=== PATIENT | male | born 1945 | race Caucasian/White ===

== ENCOUNTER 2022-06-16 09:34 | Inpatient (IN) | payer MEDICARE, BC ==
[~2022-06-16] VITALS: Ht 170.2 cm; Wt 68.0 kg
[2022-06-16 10:15] LABS: HEMATOCRIT. 36.4 % (42.0-52.0); HEMOGLOBIN. 12.5 g/dL (14.0-18.0); MEAN CORPUSCULAR HEMOGLOBIN 38.3 pg (28.0-32.0); MEAN CORPUSCULAR VOLUME 111.8 fL (80.0-94.0); MEAN PLATELET VOLUME 7.4 fl (7.4-10.4); PLATELET 130 x1000/uL (130-400); RED BLOOD CELL COUNT 3.26 mill/uL (4.7-6.1); RED CELL DISTRIBUTION WIDTH 14.5 % (11.6-14.6)
[2022-06-16 10:23] LABS: CHLORIDE 107 mEq/L (98-107)
[2022-06-16 10:25] LABS: INR 1.1; PROTHROMBIN TIME 11.4 sec (9.6-11.0)
[2022-06-16] MEDS ORDERED: METH-371 PO (11:01)
[2022-06-16] MEDS ORDERED: PROP80TA4 PO (11:03)
[2022-06-16 13:46] LABS: CLARITY URINE CLEAR (CLEAR); COLOR URINE DARK YELLOW (YELLOW); KETONES URINE TRACE (NEGATIVE); LEUKOCYTE ESTERASE URINE NEGATIVE (NEGATIVE); NITRITE URINE NEGATIVE (NEGATIVE); OCCULT BLOOD URINE TRACE (NEGATIVE); PH URINE 5.5 (4.5-8.0); PROTEIN URINE TRACE (NEGATIVE); SPECIFIC GRAVITY URINE 1.027 (1.005-1.030); UROBILINOGEN URINE 0.2 E.U./dL (0.2-1.0)
[2022-06-16] MEDS ORDERED: CARB-LEVO (14:06)
[2022-06-16] MEDS ORDERED: [UNRECOGNIZED DRUG - OTHER] (14:06)
[2022-06-16] MEDS ORDERED: B12 (14:06)
[2022-06-16] MEDS ORDERED: TAMS-11 PO (14:06)
[2022-06-16] MEDS ORDERED: PIMA34CA PO (14:06)
[2022-06-16] MEDS ORDERED: D3 (14:06)
[2022-06-16] MEDS ORDERED: [UNRECOGNIZED DRUG - OTHER] (14:06)
[2022-06-16] MEDS ORDERED: CAPECITABINE (14:06)
[2022-06-16] MEDS ORDERED: ENTA200T2 PO (14:06)
[2022-06-16] MEDS ORDERED: MELATONIN (14:06)
[2022-06-16 14:27] LABS: PLATELET ESTIMATE NORMAL
[2022-06-16] MEDS ORDERED: GUAIFENESIN 200MG/10ML SUGAR FREE UDC PO PRN (17:00)
[2022-06-16] MEDS ORDERED: MAGNESIUM/ALUMINUM HYDROXIDE/SIMETHICONE 30ML UDC PO PRN (17:00)
[2022-06-16] MEDS ORDERED: CLONIDINE 0.1MG TABLET PO PRN (17:00)
[2022-06-16] MEDS ORDERED: DOCUSATE SODIUM 100MG CAPSULE PO PRN (17:00)
[2022-06-16] MEDS ORDERED: IPRATROPIUM/ALBUTEROL 0.5-3(2.5)MG/3ML NEB NEB PRN (17:00)
[2022-06-16] MEDS ORDERED: LEVOFLOXACIN 500MG PREMIX 100 ML IV SCH (17:00)
[2022-06-16] MEDS ORDERED: ONDANSETRON HCL 4MG/2ML INJ IV PRN (17:00)
[2022-06-16] MEDS ORDERED: NITROGLYCERIN 0.4MG TABLET SL SL PRN (17:00)
[2022-06-16] MEDS ORDERED: ACETAMINOPHEN 325MG TABLET PO PRN ×2 (17:00)
[2022-06-16] MEDS ORDERED: TRAMADOL 50MG TABLET PO PRN (17:32)
[2022-06-16 17:38] LABS: T4 FREE 1.2 ng/dL (0.76-1.46)
[2022-06-16] MEDS: ENOXAPARIN 30MG/0.3ML SYR SUBCUT SCH (17:57)
[2022-06-16 18:16] LABS: VITAMIN B12 SERUM > 2000.0 pg/mL (211-911)
[2022-06-16] MEDS: TAMSULOSIN HCL 0.4MG SR CAPSULE PO SCH (19:20)
[2022-06-16] MEDS ORDERED: ZOLPIDEM TARTRATE 5MG TABLET PO PRN (20:00)
[2022-06-16 23:29] LABS: CREATINE KINASE 113 IU/L (39-308); CREATINE KINASE MB FRACTION 2.3 ng/mL (0.5-3.6)
[2022-06-17 06:28] LABS: HEMATOCRIT. 35.7 % (42.0-52.0); HEMOGLOBIN. 12.2 g/dL (14.0-18.0); MEAN CORPUSCULAR HEMOGLOBIN 37.7 pg (28.0-32.0); MEAN CORPUSCULAR VOLUME 110.4 fL (80.0-94.0); MEAN PLATELET VOLUME 7.3 fl (7.4-10.4); PLATELET 144 x1000/uL (130-400); RED BLOOD CELL COUNT 3.24 mill/uL (4.7-6.1); RED CELL DISTRIBUTION WIDTH 14.5 % (11.6-14.6)
[2022-06-17 06:37] LABS: CHLORIDE 110 mEq/L (98-107)
[2022-06-17 06:44] LABS: PHOSPHORUS 2.5 mg/dL (2.5-4.9)
[2022-06-17 06:57] LABS: CREATINE KINASE MB FRACTION 1.8 ng/mL (0.5-3.6)
[2022-06-17] MEDS: PANTOPRAZOLE SODIUM 40 MG/VIAL IV SCH (09:30)
[2022-06-17 12:15] VITALS: BP 141/87
[2022-06-17 14:42] VITALS: BP 141/87
[2022-06-17] MEDS ORDERED: PROP60TA18 PO (15:12)
[2022-06-17 16:00] VITALS: BP 143/73
[2022-06-17 16:45] LABS: PLATELET ESTIMATE NORMAL
[2022-06-17] MEDS: TAMSULOSIN HCL 0.4MG SR CAPSULE PO SCH (17:48)
[2022-06-17] MEDS: DUTASTERIDE 0.5MG CAPSULE PO SCH (17:48)
[2022-06-17] MEDS: ENOXAPARIN 30MG/0.3ML SYR SUBCUT SCH (17:49)
[2022-06-17 18:00] LABS: *AMPHETAMINES SCREEN URINE NEGATIVE (NEGATIVE); *BARBITURATES SCREEN URINE NEGATIVE (NEGATIVE); *BENZODIAZEPINES SCREEN URINE NEGATIVE (NEGATIVE); *COCAINE SCREEN URINE NEGATIVE (NEGATIVE); CANNABINOID URINE SCREEN NEGATIVE (NEGATIVE); METHADONE URINE SCREEN NEGATIVE (NEGATIVE); OPIATES URINE SCREEN NEGATIVE (NEGATIVE); PHENCYCLIDINE URINE SCREEN NEGATIVE (NEGATIVE)
[2022-06-17] MEDS ORDERED: NALOXONE HCL 0.4MG/ML VIAL IV PRN (18:15)
[2022-06-17 20:00] VITALS: BP 123/90
[2022-06-17] MEDS ORDERED: CARB-299 PO (20:18)
[2022-06-18] VITALS: BP 140/77
[2022-06-18 04:00] VITALS: BP 132/77
[2022-06-18] MEDS ORDERED: CARBIDOPA/LEVODOPA 25/100MG TABLET PO ONE (07:45)
[2022-06-18 08:00] VITALS: BP 150/77
[2022-06-18] MEDS: PANTOPRAZOLE SODIUM 40 MG/VIAL IV SCH (08:45)
[2022-06-18] MEDS: TAMSULOSIN HCL 0.4MG SR CAPSULE PO SCH (08:46)
[2022-06-18] MEDS: DUTASTERIDE 0.5MG CAPSULE PO SCH (08:46)
[2022-06-18] MEDS ORDERED: LEVOFLOXACIN 500MG PREMIX 100 ML IV SCH (11:00)
[2022-06-18 12:00] VITALS: BP 145/71
[2022-06-18] MEDS: CARBIDOPA/LEVODOPA 25/100MG TABLET PO SCH ×3 (12:20→20:10)
[2022-06-18 16:00] VITALS: BP 135/72
[2022-06-18] MEDS: ENOXAPARIN 30MG/0.3ML SYR SUBCUT SCH (17:25)
[2022-06-18 20:00] VITALS: BP 138/70
[2022-06-19] VITALS: BP 134/72
[2022-06-19 04:00] VITALS: BP 150/70
[2022-06-19 08:00] VITALS: BP 156/85
[2022-06-19] MEDS: DUTASTERIDE 0.5MG CAPSULE PO SCH (08:31)
[2022-06-19] MEDS: CARBIDOPA/LEVODOPA 25/100MG TABLET PO SCH ×4 (08:31→21:00)
[2022-06-19] MEDS: PANTOPRAZOLE SODIUM 40 MG/VIAL IV SCH (08:31)
[2022-06-19] MEDS: TAMSULOSIN HCL 0.4MG SR CAPSULE PO SCH (08:35)
[2022-06-19 16:00] VITALS: BP 153/87
[2022-06-19 16:17] LABS: BASOPHILS % 0.4 % (0.0-2.0); EOSINOPHILS % 1.1 % (0.0-5.0); HEMATOCRIT. 35.4 % (42.0-52.0); HEMOGLOBIN. 12.2 g/dL (14.0-18.0); LYMPHOCYTES % 9.2 % (20.0-50.0); MEAN CORPUSCULAR HEMOGLOBIN 38.4 pg (28.0-32.0); MEAN PLATELET VOLUME 7.7 fl (7.4-10.4); MONOCYTES % 8.9 % (2.0-8.0); NEUTROPHILS % 80.4 % (40.0-76.0); PLATELET 181 x1000/uL (130-400); RED BLOOD CELL COUNT 3.19 mill/uL (4.7-6.1); RED CELL DISTRIBUTION WIDTH 14.3 % (11.6-14.6)
[2022-06-19 16:28] LABS: CHLORIDE 107 mEq/L (98-107)
[2022-06-19] MEDS: ENOXAPARIN 30MG/0.3ML SYR SUBCUT SCH (17:00)
[2022-06-19] MEDS: LEVOFLOXACIN 500MG PREMIX 100 ML IV SCH (19:00)
[2022-06-19 20:00] VITALS: BP 138/69
[2022-06-20] VITALS: BP 105/61
[2022-06-20 04:00] VITALS: BP 147/83
[2022-06-20 08:00] VITALS: BP 142/76
[2022-06-20] MEDS: CARBIDOPA/LEVODOPA 25/100MG TABLET PO SCH ×4 (10:38→21:07)
[2022-06-20] MEDS: TAMSULOSIN HCL 0.4MG SR CAPSULE PO SCH (10:38)
[2022-06-20] MEDS: DUTASTERIDE 0.5MG CAPSULE PO SCH (10:38)
[2022-06-20 12:00] VITALS: BP 143/66
[2022-06-20] MEDS: LEVOFLOXACIN 500MG PREMIX 100 ML IV SCH (12:29)
[2022-06-20] MEDS: FAMOTIDINE 20MG/2ML VIAL IV SCH ×2 (12:30→21:07)
[2022-06-20] MEDS ORDERED: LOPERAMIDE HCL 2MG CAPSULE PO SCH ×2 (13:30→15:30)
[2022-06-20 16:00] VITALS: BP 145/65
[2022-06-20] MEDS: ENOXAPARIN 30MG/0.3ML SYR SUBCUT SCH (17:47)
[2022-06-20 20:00] VITALS: BP 148/76
[2022-06-21] VITALS: BP 132/67
[2022-06-21 04:00] VITALS: BP 140/78
[2022-06-21 06:54] LABS: BASOPHILS % 0.3 % (0.0-2.0); EOSINOPHILS % 0.9 % (0.0-5.0); HEMATOCRIT. 34.2 % (42.0-52.0); HEMOGLOBIN. 12.1 g/dL (14.0-18.0); LYMPHOCYTES % 10.3 % (20.0-50.0); MEAN CORPUSCULAR HEMOGLOBIN 38.2 pg (28.0-32.0); MEAN CORPUSCULAR VOLUME 108.2 fL (80.0-94.0); MEAN PLATELET VOLUME 7.3 fl (7.4-10.4); MONOCYTES % 10.2 % (2.0-8.0); NEUTROPHILS % 78.3 % (40.0-76.0); PLATELET 194 x1000/uL (130-400); RED BLOOD CELL COUNT 3.16 mill/uL (4.7-6.1); RED CELL DISTRIBUTION WIDTH 14.2 % (11.6-14.6)
[2022-06-21 08:00] VITALS: BP 141/77
[2022-06-21] MEDS: FAMOTIDINE 20MG/2ML VIAL IV SCH ×2 (08:37→22:28)
[2022-06-21] MEDS: TAMSULOSIN HCL 0.4MG SR CAPSULE PO SCH (08:37)
[2022-06-21] MEDS: CARBIDOPA/LEVODOPA 25/100MG TABLET PO SCH ×4 (08:37→22:29)
[2022-06-21 08:38] LABS: CHLORIDE 108 mEq/L (98-107)
[2022-06-21] MEDS: DUTASTERIDE 0.5MG CAPSULE PO SCH (08:38)
[2022-06-21 12:00] VITALS: BP 152/76
[2022-06-21 16:00] VITALS: BP 149/76
[2022-06-21] MEDS: ENOXAPARIN 30MG/0.3ML SYR SUBCUT SCH (17:39)
[2022-06-21 20:00] VITALS: BP 133/89
[2022-06-21] MEDS ORDERED: NUPLAZID 34 MG PO SCH (20:00)
[2022-06-22] VITALS: BP 133/71
[2022-06-22 08:00] VITALS: BP 159/80
[2022-06-22] MEDS: FAMOTIDINE 20MG/2ML VIAL IV SCH (08:59)
[2022-06-22] MEDS: CARBIDOPA/LEVODOPA 25/100MG TABLET PO SCH ×3 (08:59→17:59)
[2022-06-22] MEDS: DUTASTERIDE 0.5MG CAPSULE PO SCH (08:59)
[2022-06-22] MEDS: TAMSULOSIN HCL 0.4MG SR CAPSULE PO SCH (08:59)
[2022-06-22 12:00] VITALS: BP 148/77
[2022-06-22 16:00] VITALS: BP 143/72
[2022-06-22] MEDS: ENOXAPARIN 30MG/0.3ML SYR SUBCUT SCH (17:59)
== END 2022-06-22 21:50 | DRG 91 ==
LOC: ER 09:34 → MICUSO 13:40 → EDBEDREQ 13:50 → SUPCPDRO 16:55 → 8WST 06-17 11:55
PROVIDERS: ADMIT Psychiatry & Neurology Neurology; ATTEND Internal Medicine
DX: G92.8 Other toxic encephalopathy (principal); G82.50 Quadriplegia, unspecified; N17.0 Acute kidney failure with tubular necrosis; E44.1 Mild protein-calorie malnutrition; N39.0 Urinary tract infection, site not specified; N13.30 Unspecified hydronephrosis; N40.1 Benign prostatic hyperplasia with lower urinary tract symptoms; E88.09 Other disorders of plasma-protein metabolism, not elsewhere classified; G20 Parkinson's disease; F02.80 Dementia in other diseases classified elsewhere, unspecified severity, without behavioral disturbance, psychotic disturbance, mood disturbance, and anxiety; R13.10 Dysphagia, unspecified; R26.9 Unspecified abnormalities of gait and mobility; R33.8 Other retention of urine; H54.7 Unspecified visual loss; D63.8 Anemia in other chronic diseases classified elsewhere; N32.89 Other specified disorders of bladder; Z68.23 Body mass index [BMI] 23.0-23.9, adult; Z88.2 Allergy status to sulfonamides; Z90.49 Acquired absence of other specified parts of digestive tract; Z85.038 Personal history of other malignant neoplasm of large intestine; Z82.49 Family history of ischemic heart disease and other diseases of the circulatory system; Z87.891 Personal history of nicotine dependence; Z79.899 Other long term (current) drug therapy
CPT/HCPCS: 36415; 74176; 80048; 80053; 80061; 80305; 81003; 82550; 82553; 82607; 82746; 83036; 83540; 83550; 83735; 84100; 84439; 84443; 84484; 85025; 87493; 92610; 93970; 97110; 97162; 97166; 97530; 97535; 99285; A6261; C9113; J1650; J1956; J3490; A4315

== ENCOUNTER 2022-06-22 21:55 | Inpatient (IN) | payer MEDICARE, BC ==
[~2022-06-22] VITALS: Ht 170.2 cm; Wt 68.0 kg
[2022-06-22 21:55] VITALS: BP 155/90
[~2022-06-22 21:55] MED LIST: B12; CAPECITABINE; CARB-299 PO; CARB-LEVO; D3; ENTA200T2 PO; MELATONIN; METH-371 PO; PIMA34CA PO; PROP60TA18 PO; TAMS-11 PO; [UNRECOGNIZED DRUG - OTHER]; [UNRECOGNIZED DRUG - OTHER]
[2022-06-22 22:00] VITALS: BP 155/90
[2022-06-22] MEDS ORDERED: CLONIDINE 0.1MG TABLET PO PRN (23:00)
[2022-06-22] MEDS ORDERED: ONDANSETRON HCL 4MG/2ML INJ IV PRN (23:00)
[2022-06-22] MEDS ORDERED: ACETAMINOPHEN 325MG TABLET PO PRN (23:00)
[2022-06-22] MEDS ORDERED: NITROGLYCERIN 0.4MG TABLET SL SL PRN (23:00)
[2022-06-22] MEDS ORDERED: MAGNESIUM/ALUMINUM HYDROXIDE/SIMETHICONE 30ML UDC PO PRN (23:00)
[2022-06-22] MEDS ORDERED: GUAIFENESIN 200MG/10ML SUGAR FREE UDC PO PRN (23:00)
[2022-06-22] MEDS ORDERED: IPRATROPIUM/ALBUTEROL 0.5-3(2.5)MG/3ML NEB HHN PRN (23:00)
[2022-06-23] MEDS ORDERED: DOCUSATE SODIUM 100MG CAPSULE PO PRN (02:15)
[2022-06-23 06:40] LABS: BASOPHILS % 0.3 % (0.0-2.0); EOSINOPHILS % 0.5 % (0.0-5.0); HEMATOCRIT. 33.1 % (42.0-52.0); HEMOGLOBIN. 11.7 g/dL (14.0-18.0); MEAN CORPUSCULAR HEMOGLOBIN 38.5 pg (28.0-32.0); MEAN CORPUSCULAR VOLUME 108.8 fL (80.0-94.0); MEAN PLATELET VOLUME 7.1 fl (7.4-10.4); MONOCYTES % 6.6 % (2.0-8.0); NEUTROPHILS % 82.6 % (40.0-76.0); PLATELET 218 x1000/uL (130-400); RED BLOOD CELL COUNT 3.04 mill/uL (4.7-6.1)
[2022-06-23 07:30] LABS: CHLORIDE 107 mEq/L (98-107)
[2022-06-23 08:00] VITALS: BP 156/81
[2022-06-23] MEDS: NUPLAZID 34 MG PO SCH (09:00)
[2022-06-23] MEDS: TAMSULOSIN HCL 0.4MG SR CAPSULE PO SCH (09:54)
[2022-06-23] MEDS: FAMOTIDINE 20MG TABLET PO SCH ×2 (09:54→20:16)
[2022-06-23] MEDS: DUTASTERIDE 0.5MG CAPSULE PO SCH (09:54)
[2022-06-23] MEDS: CARBIDOPA/LEVODOPA 25/100MG TABLET PO SCH ×4 (09:54→20:17)
[2022-06-23 13:56] VITALS: BP 156/86
[2022-06-23] MEDS ORDERED: ENOXAPARIN 30MG/0.3ML SYR SUBCUT SCH (17:00)
[2022-06-23 20:00] VITALS: BP 111/57
[2022-06-24 06:53] LABS: BASOPHILS % 0.3 % (0.0-2.0); EOSINOPHILS % 0.5 % (0.0-5.0); HEMATOCRIT. 33.2 % (42.0-52.0); HEMOGLOBIN. 11.8 g/dL (14.0-18.0); LYMPHOCYTES % 10.4 % (20.0-50.0); MEAN CORPUSCULAR HEMOGLOBIN 38.2 pg (28.0-32.0); MEAN PLATELET VOLUME 7.1 fl (7.4-10.4); MONOCYTES % 5.3 % (2.0-8.0); NEUTROPHILS % 83.5 % (40.0-76.0); PLATELET 245 x1000/uL (130-400); RED CELL DISTRIBUTION WIDTH 13.8 % (11.6-14.6)
[2022-06-24 07:19] LABS: CHLORIDE 103 mEq/L (98-107)
[2022-06-24 07:30] LABS: FERRITIN 328 ng/mL (22-322)
[2022-06-24 07:43] LABS: VITAMIN B12 SERUM >2000 pg/mL pg/mL (211-911)
[2022-06-24 07:48] LABS: TOTAL IRON BINDING CAPACITY 264 ug/dL (250-450)
[2022-06-24 08:00] VITALS: BP 122/63
[2022-06-24] MEDS: NUPLAZID 34 MG PO SCH (09:00)
[2022-06-24] MEDS: DUTASTERIDE 0.5MG CAPSULE PO SCH (09:07)
[2022-06-24] MEDS: TAMSULOSIN HCL 0.4MG SR CAPSULE PO SCH (09:07)
[2022-06-24] MEDS: FAMOTIDINE 20MG TABLET PO SCH ×2 (09:08→20:15)
[2022-06-24] MEDS: CARBIDOPA/LEVODOPA 25/100MG TABLET PO SCH ×4 (09:08→20:15)
[2022-06-24 20:29] VITALS: BP 138/74
[2022-06-25 06:16] LABS: CHLORIDE 105 mEq/L (98-107)
[2022-06-25 06:19] LABS: INR 1.1; PROTHROMBIN TIME 11.4 sec (9.6-11.0)
[2022-06-25 06:32] LABS: BASOPHILS % 0.4 % (0.0-2.0); EOSINOPHILS % 0.6 % (0.0-5.0); HEMATOCRIT. 32.4 % (42.0-52.0); HEMOGLOBIN. 11.6 g/dL (14.0-18.0); LYMPHOCYTES % 7.7 % (20.0-50.0); MEAN CORPUSCULAR HEMOGLOBIN 37.9 pg (28.0-32.0); MEAN PLATELET VOLUME 6.8 fl (7.4-10.4); MONOCYTES % 5.7 % (2.0-8.0); NEUTROPHILS % 85.6 % (40.0-76.0); PLATELET 239 x1000/uL (130-400); RED BLOOD CELL COUNT 3.05 mill/uL (4.7-6.1); RED CELL DISTRIBUTION WIDTH 13.8 % (11.6-14.6)
[2022-06-25 08:00] VITALS: BP 146/74
[2022-06-25] MEDS: FAMOTIDINE 20MG TABLET PO SCH ×2 (08:53→20:15)
[2022-06-25] MEDS: CARBIDOPA/LEVODOPA 25/100MG TABLET PO SCH ×4 (08:53→20:15)
[2022-06-25] MEDS: DUTASTERIDE 0.5MG CAPSULE PO SCH (08:53)
[2022-06-25] MEDS: TAMSULOSIN HCL 0.4MG SR CAPSULE PO SCH (08:54)
[2022-06-25] MEDS: ACETAMINOPHEN 325MG TABLET PO PRN (08:55)
[2022-06-25] MEDS: NUPLAZID 34 MG PO SCH (08:55)
[2022-06-25] MEDS ORDERED: POTASSIUM CHLORIDE 20MEQ TABLET SR PO SCH (11:00)
[2022-06-25 16:15] LABS: T4 FREE 1.36 ng/dL (0.76-1.46)
[2022-06-25] MEDS: ENTACAPONE 200MG TABLET PO SCH ×2 (17:29→20:15)
[2022-06-25 20:16] VITALS: BP 112/64
[2022-06-25] MEDS: LACTULOSE 20G/30ML UDC PO SCH (21:49)
[2022-06-26] MEDS: LACTULOSE 20G/30ML UDC PO SCH ×2 (05:07→13:30)
[2022-06-26 08:00] VITALS: BP 124/70
[2022-06-26] MEDS: CARBIDOPA/LEVODOPA 25/100MG TABLET PO SCH ×4 (08:52→21:09)
[2022-06-26] MEDS: FAMOTIDINE 20MG TABLET PO SCH ×2 (08:52→21:09)
[2022-06-26] MEDS: TAMSULOSIN HCL 0.4MG SR CAPSULE PO SCH (08:52)
[2022-06-26] MEDS: DUTASTERIDE 0.5MG CAPSULE PO SCH (08:52)
[2022-06-26] MEDS: ENTACAPONE 200MG TABLET PO SCH ×4 (08:52→21:09)
[2022-06-26] MEDS: NUPLAZID 34 MG PO SCH (08:53)
[2022-06-26 13:47] LABS: CHLORIDE 105 mEq/L (98-107)
[2022-06-26 16:23] LABS: BASOPHILS % 0.5 % (0.0-2.0); EOSINOPHILS % 0.3 % (0.0-5.0); HEMATOCRIT. 31.9 % (42.0-52.0); HEMOGLOBIN. 11.2 g/dL (14.0-18.0); LYMPHOCYTES % 8.9 % (20.0-50.0); MEAN CORPUSCULAR HEMOGLOBIN 37.7 pg (28.0-32.0); MEAN CORPUSCULAR VOLUME 107.1 fL (80.0-94.0); MONOCYTES % 7.7 % (2.0-8.0); NEUTROPHILS % 82.6 % (40.0-76.0); PLATELET 242 x1000/uL (130-400); RED BLOOD CELL COUNT 2.98 mill/uL (4.7-6.1); RED CELL DISTRIBUTION WIDTH 13.9 % (11.6-14.6)
[2022-06-26 20:00] VITALS: BP 102/77
[2022-06-27 07:10] LABS: BASOPHILS % 0.4 % (0.0-2.0); EOSINOPHILS % 0.6 % (0.0-5.0); HEMOGLOBIN. 11.4 g/dL (14.0-18.0); LYMPHOCYTES % 10.7 % (20.0-50.0); MEAN CORPUSCULAR HEMOGLOBIN 37.7 pg (28.0-32.0); MEAN CORPUSCULAR VOLUME 105.7 fL (80.0-94.0); MEAN PLATELET VOLUME 6.5 fl (7.4-10.4); MONOCYTES % 7.1 % (2.0-8.0); NEUTROPHILS % 81.2 % (40.0-76.0); PLATELET 230 x1000/uL (130-400); RED BLOOD CELL COUNT 3.03 mill/uL (4.7-6.1); RED CELL DISTRIBUTION WIDTH 13.6 % (11.6-14.6)
[2022-06-27 07:21] LABS: CHLORIDE 104 mEq/L (98-107)
[2022-06-27 08:00] VITALS: BP 144/81
[2022-06-27] MEDS: DUTASTERIDE 0.5MG CAPSULE PO SCH (08:03)
[2022-06-27] MEDS: NUPLAZID 34 MG PO SCH (08:03)
[2022-06-27] MEDS: ENTACAPONE 200MG TABLET PO SCH ×4 (08:03→21:14)
[2022-06-27] MEDS: TAMSULOSIN HCL 0.4MG SR CAPSULE PO SCH (08:03)
[2022-06-27] MEDS: FAMOTIDINE 20MG TABLET PO SCH ×2 (08:04→21:13)
[2022-06-27] MEDS: CARBIDOPA/LEVODOPA 25/100MG TABLET PO SCH ×4 (08:04→21:14)
[2022-06-27 20:00] VITALS: BP 146/80
[2022-06-28 07:00] LABS: BASOPHILS % 0.5 % (0.0-2.0); EOSINOPHILS % 0.5 % (0.0-5.0); HEMATOCRIT. 32.2 % (42.0-52.0); HEMOGLOBIN. 11.4 g/dL (14.0-18.0); LYMPHOCYTES % 11.5 % (20.0-50.0); MEAN CORPUSCULAR HEMOGLOBIN 37.3 pg (28.0-32.0); MEAN CORPUSCULAR VOLUME 105.6 fL (80.0-94.0); MEAN PLATELET VOLUME 6.9 fl (7.4-10.4); MONOCYTES % 8.2 % (2.0-8.0); NEUTROPHILS % 79.3 % (40.0-76.0); PLATELET 245 x1000/uL (130-400); RED BLOOD CELL COUNT 3.05 mill/uL (4.7-6.1); RED CELL DISTRIBUTION WIDTH 13.9 % (11.6-14.6)
[2022-06-28 07:01] LABS: CHLORIDE 106 mEq/L (98-107)
[2022-06-28 08:00] VITALS: BP 128/66
[2022-06-28] MEDS: CARBIDOPA/LEVODOPA 25/100MG TABLET PO SCH ×4 (08:45→20:47)
[2022-06-28] MEDS: DUTASTERIDE 0.5MG CAPSULE PO SCH (08:45)
[2022-06-28] MEDS: FAMOTIDINE 20MG TABLET PO SCH ×2 (08:45→20:48)
[2022-06-28] MEDS: TAMSULOSIN HCL 0.4MG SR CAPSULE PO SCH (08:46)
[2022-06-28] MEDS: ENTACAPONE 200MG TABLET PO SCH ×4 (08:46→20:47)
[2022-06-28] MEDS: NUPLAZID 34 MG PO SCH (08:47)
[2022-06-28] MEDS: ACETAMINOPHEN 325MG TABLET PO PRN (18:01)
[2022-06-28 20:04] VITALS: BP 124/56
[2022-06-29 06:02] LABS: CHLORIDE 106 mEq/L (98-107)
[2022-06-29 06:44] LABS: BASOPHILS % 0.4 % (0.0-2.0); EOSINOPHILS % 0.8 % (0.0-5.0); HEMATOCRIT. 32.4 % (42.0-52.0); HEMOGLOBIN. 11.6 g/dL (14.0-18.0); LYMPHOCYTES % 11.8 % (20.0-50.0); MEAN CORPUSCULAR HEMOGLOBIN 37.4 pg (28.0-32.0); MEAN CORPUSCULAR VOLUME 104.8 fL (80.0-94.0); MEAN PLATELET VOLUME 6.8 fl (7.4-10.4); MONOCYTES % 7.9 % (2.0-8.0); NEUTROPHILS % 79.1 % (40.0-76.0); PLATELET 260 x1000/uL (130-400); RED BLOOD CELL COUNT 3.09 mill/uL (4.7-6.1); RED CELL DISTRIBUTION WIDTH 13.8 % (11.6-14.6)
[2022-06-29 08:00] VITALS: BP 130/88
[2022-06-29] MEDS: ACETAMINOPHEN 325MG TABLET PO PRN (08:18)
[2022-06-29] MEDS: CARBIDOPA/LEVODOPA 25/100MG TABLET PO SCH ×4 (08:18→20:46)
[2022-06-29] MEDS: DUTASTERIDE 0.5MG CAPSULE PO SCH (08:18)
[2022-06-29] MEDS: ENTACAPONE 200MG TABLET PO SCH ×4 (08:18→20:46)
[2022-06-29] MEDS: FAMOTIDINE 20MG TABLET PO SCH ×2 (08:18→20:46)
[2022-06-29] MEDS: NUPLAZID 34 MG PO SCH (08:19)
[2022-06-29] MEDS: TAMSULOSIN HCL 0.4MG SR CAPSULE PO SCH (08:19)
[2022-06-29 20:13] VITALS: BP 123/54
[2022-06-30 06:05] LABS: CHLORIDE 103 mEq/L (98-107)
[2022-06-30 06:12] LABS: BASOPHILS % 0.4 % (0.0-2.0); HEMATOCRIT. 32.6 % (42.0-52.0); HEMOGLOBIN. 11.6 g/dL (14.0-18.0); MEAN CORPUSCULAR HEMOGLOBIN 37.3 pg (28.0-32.0); MEAN CORPUSCULAR VOLUME 105.2 fL (80.0-94.0); MEAN PLATELET VOLUME 6.8 fl (7.4-10.4); MONOCYTES % 7.7 % (2.0-8.0); NEUTROPHILS % 74.9 % (40.0-76.0); PLATELET 257 x1000/uL (130-400); RED CELL DISTRIBUTION WIDTH 13.6 % (11.6-14.6)
[2022-06-30 08:00] VITALS: BP 151/71
[2022-06-30] MEDS: NUPLAZID 34 MG PO SCH (09:00)
[2022-06-30] MEDS: FAMOTIDINE 20MG TABLET PO SCH ×2 (09:34→20:43)
[2022-06-30] MEDS: ENTACAPONE 200MG TABLET PO SCH ×4 (09:35→20:43)
[2022-06-30] MEDS: CARBIDOPA/LEVODOPA 25/100MG TABLET PO SCH ×4 (09:35→20:43)
[2022-06-30] MEDS: TAMSULOSIN HCL 0.4MG SR CAPSULE PO SCH (09:35)
[2022-06-30] MEDS: DUTASTERIDE 0.5MG CAPSULE PO SCH (09:35)
[2022-06-30] MEDS: ACETAMINOPHEN 325MG TABLET PO PRN (13:28)
[2022-06-30 18:00] VITALS: BP 151/71
[2022-06-30 20:00] VITALS: BP 93/53
[2022-07-01 06:48] LABS: CHLORIDE 105 mEq/L (98-107)
[2022-07-01 07:07] LABS: BASOPHILS % 0.6 % (0.0-2.0); EOSINOPHILS % 0.5 % (0.0-5.0); HEMATOCRIT. 34.9 % (42.0-52.0); LYMPHOCYTES % 16.1 % (20.0-50.0); MEAN CORPUSCULAR HEMOGLOBIN 36.2 pg (28.0-32.0); MEAN CORPUSCULAR VOLUME 105.3 fL (80.0-94.0); MEAN PLATELET VOLUME 7.1 fl (7.4-10.4); MONOCYTES % 5.6 % (2.0-8.0); NEUTROPHILS % 77.2 % (40.0-76.0); PLATELET 264 x1000/uL (130-400); RED BLOOD CELL COUNT 3.32 mill/uL (4.7-6.1)
[2022-07-01 08:00] VITALS: BP 146/72
[2022-07-01] MEDS: CARBIDOPA/LEVODOPA 25/100MG TABLET PO SCH ×4 (08:45→20:55)
[2022-07-01] MEDS: DUTASTERIDE 0.5MG CAPSULE PO SCH (08:45)
[2022-07-01] MEDS: ENTACAPONE 200MG TABLET PO SCH ×4 (08:45→20:55)
[2022-07-01] MEDS: FAMOTIDINE 20MG TABLET PO SCH ×2 (08:46→20:55)
[2022-07-01] MEDS: TAMSULOSIN HCL 0.4MG SR CAPSULE PO SCH (08:46)
[2022-07-01] MEDS: ACETAMINOPHEN 325MG TABLET PO PRN ×2 (08:47→18:15)
[2022-07-01] MEDS: NUPLAZID 34 MG PO SCH (08:50)
[2022-07-01 14:09] LABS: 25-HYDROXY VITAMIN D3 35 ng/mL (.)
[2022-07-01 20:00] VITALS: BP 155/73
[2022-07-02 06:48] LABS: BASOPHILS % 0.7 % (0.0-2.0); EOSINOPHILS % 1.6 % (0.0-5.0); HEMOGLOBIN. 11.5 g/dL (14.0-18.0); LYMPHOCYTES % 28.2 % (20.0-50.0); MEAN CORPUSCULAR HEMOGLOBIN 36.4 pg (28.0-32.0); MEAN CORPUSCULAR VOLUME 104.5 fL (80.0-94.0); MEAN PLATELET VOLUME 6.9 fl (7.4-10.4); MONOCYTES % 7.2 % (2.0-8.0); NEUTROPHILS % 62.3 % (40.0-76.0); PLATELET 262 x1000/uL (130-400); RED BLOOD CELL COUNT 3.16 mill/uL (4.7-6.1); RED CELL DISTRIBUTION WIDTH 13.9 % (11.6-14.6)
[2022-07-02 06:57] LABS: CHLORIDE 108 mEq/L (98-107)
[2022-07-02 08:00] VITALS: BP 132/78
[2022-07-02] MEDS: FAMOTIDINE 20MG TABLET PO SCH ×2 (08:00→21:05)
[2022-07-02] MEDS: DUTASTERIDE 0.5MG CAPSULE PO SCH (08:00)
[2022-07-02] MEDS: TAMSULOSIN HCL 0.4MG SR CAPSULE PO SCH (08:00)
[2022-07-02] MEDS: ENTACAPONE 200MG TABLET PO SCH ×4 (08:00→21:05)
[2022-07-02] MEDS: CARBIDOPA/LEVODOPA 25/100MG TABLET PO SCH ×4 (08:00→21:05)
[2022-07-02] MEDS: NUPLAZID 34 MG PO SCH (08:04)
[2022-07-02] MEDS: ACETAMINOPHEN 325MG TABLET PO PRN ×2 (12:02→16:25)
[2022-07-02] MEDS ORDERED: ERGOCALCIFEROL 50000UNITS CAPSULE PO SCH (15:00)
[2022-07-02 20:00] VITALS: BP 148/78
[2022-07-03 08:00] VITALS: BP 155/77
[2022-07-03] MEDS: NUPLAZID 34 MG PO SCH (09:27)
[2022-07-03] MEDS: TAMSULOSIN HCL 0.4MG SR CAPSULE PO SCH (09:28)
[2022-07-03] MEDS: ENTACAPONE 200MG TABLET PO SCH ×4 (09:29→21:19)
[2022-07-03] MEDS: DUTASTERIDE 0.5MG CAPSULE PO SCH (09:29)
[2022-07-03] MEDS: CARBIDOPA/LEVODOPA 25/100MG TABLET PO SCH ×4 (09:29→21:18)
[2022-07-03] MEDS: FAMOTIDINE 20MG TABLET PO SCH ×2 (09:29→21:19)
[2022-07-03 12:23] LABS: BASOPHILS % 0.3 % (0.0-2.0); EOSINOPHILS % 0.6 % (0.0-5.0); HEMATOCRIT. 33.9 % (42.0-52.0); HEMOGLOBIN. 11.9 g/dL (14.0-18.0); LYMPHOCYTES % 18.5 % (20.0-50.0); MEAN CORPUSCULAR HEMOGLOBIN 36.1 pg (28.0-32.0); MEAN CORPUSCULAR VOLUME 102.8 fL (80.0-94.0); MEAN PLATELET VOLUME 6.6 fl (7.4-10.4); MONOCYTES % 7.2 % (2.0-8.0); NEUTROPHILS % 73.4 % (40.0-76.0); PLATELET 249 x1000/uL (130-400); RED CELL DISTRIBUTION WIDTH 13.9 % (11.6-14.6)
[2022-07-03 12:24] LABS: CLARITY URINE CLEAR (CLEAR); COLOR URINE YELLOW (YELLOW); KETONES URINE NEGATIVE (NEGATIVE); LEUKOCYTE ESTERASE URINE NEGATIVE (NEGATIVE); NITRITE URINE NEGATIVE (NEGATIVE); OCCULT BLOOD URINE 2+ (NEGATIVE); PROTEIN URINE NEGATIVE (NEGATIVE); SPECIFIC GRAVITY URINE 1.014 (1.005-1.030)
[2022-07-03 12:58] LABS: CHLORIDE 104 mEq/L (98-107)
[2022-07-03] MEDS: ACETAMINOPHEN 325MG TABLET PO PRN (17:57)
[2022-07-03 20:00] VITALS: BP 107/72
[2022-07-04 05:55] LABS: CHLORIDE 107 mEq/L (98-107)
[2022-07-04 06:15] LABS: BASOPHILS % 0.5 % (0.0-2.0); EOSINOPHILS % 0.5 % (0.0-5.0); HEMATOCRIT. 34.6 % (42.0-52.0); HEMOGLOBIN. 11.9 g/dL (14.0-18.0); LYMPHOCYTES % 18.2 % (20.0-50.0); MEAN CORPUSCULAR HEMOGLOBIN 35.4 pg (28.0-32.0); MEAN CORPUSCULAR VOLUME 103.5 fL (80.0-94.0); MONOCYTES % 6.6 % (2.0-8.0); NEUTROPHILS % 74.2 % (40.0-76.0); PLATELET 247 x1000/uL (130-400); RED BLOOD CELL COUNT 3.34 mill/uL (4.7-6.1); RED CELL DISTRIBUTION WIDTH 13.9 % (11.6-14.6)
[2022-07-04 08:00] VITALS: BP 141/67
[2022-07-04] MEDS: DUTASTERIDE 0.5MG CAPSULE PO SCH (09:00)
[2022-07-04] MEDS: ENTACAPONE 200MG TABLET PO SCH ×4 (09:00→22:10)
[2022-07-04] MEDS: FAMOTIDINE 20MG TABLET PO SCH ×2 (09:06→22:10)
[2022-07-04] MEDS: CARBIDOPA/LEVODOPA 25/100MG TABLET PO SCH ×4 (09:06→22:10)
[2022-07-04] MEDS: TAMSULOSIN HCL 0.4MG SR CAPSULE PO SCH (09:06)
[2022-07-04] MEDS: ACETAMINOPHEN 325MG TABLET PO PRN (09:07)
[2022-07-04] MEDS: NUPLAZID 34 MG PO SCH (09:09)
[2022-07-04] MEDS ORDERED: LACTULOSE 20G/30ML UDC PO STA (10:12)
[2022-07-04] MEDS ORDERED: NA PHOS,M-B/NA PHOS,DI-BA ENEMA 118ML PR NR (10:15)
[2022-07-04] MEDS ORDERED: BISACODYL 10MG SUPP PR PRN (10:15)
[2022-07-05 07:51] VITALS: BP 120/58
[2022-07-05] MEDS: ENTACAPONE 200MG TABLET PO SCH ×2 (09:36→14:09)
[2022-07-05] MEDS: NUPLAZID 34 MG PO SCH (09:36)
[2022-07-05] MEDS: DUTASTERIDE 0.5MG CAPSULE PO SCH (09:36)
[2022-07-05] MEDS: CARBIDOPA/LEVODOPA 25/100MG TABLET PO SCH ×2 (09:36→14:09)
[2022-07-05] MEDS: FAMOTIDINE 20MG TABLET PO SCH (09:37)
[2022-07-05] MEDS: TAMSULOSIN HCL 0.4MG SR CAPSULE PO SCH (09:37)
[2022-07-05 16:43] VITALS: BP 119/59
== END 2022-07-05 17:05 | disposition home health service (06) | DRG 91 ==
PROVIDERS: ADMIT Physical Medicine & Rehabilitation Spinal Cord Injury Medicine; ATTEND Internal Medicine
DX: G92.8 Other toxic encephalopathy (principal); A41.9 Sepsis, unspecified organism; G82.50 Quadriplegia, unspecified; N17.9 Acute kidney failure, unspecified; N13.2 Hydronephrosis with renal and ureteral calculous obstruction; E44.0 Moderate protein-calorie malnutrition; G20 Parkinson's disease; R13.10 Dysphagia, unspecified; D63.8 Anemia in other chronic diseases classified elsewhere; E87.6 Hypokalemia; F01.50 Vascular dementia, unspecified severity, without behavioral disturbance, psychotic disturbance, mood disturbance, and anxiety; I10 Essential (primary) hypertension; N32.89 Other specified disorders of bladder; Z82.49 Family history of ischemic heart disease and other diseases of the circulatory system; Z85.038 Personal history of other malignant neoplasm of large intestine; Z87.891 Personal history of nicotine dependence; Z90.49 Acquired absence of other specified parts of digestive tract; N40.0 Benign prostatic hyperplasia without lower urinary tract symptoms; E55.9 Vitamin D deficiency, unspecified; F39 Unspecified mood [affective] disorder; R53.81 Other malaise; R26.9 Unspecified abnormalities of gait and mobility
CPT/HCPCS: 36415; 70551; 80048; 80053; 81003; 82140; 82270; 82306; 82378; 82607; 82728; 82746; 83036; 83540; 83550; 84134; 84439; 84443; 84481; 85018; 85025; 87015; 87045; 87427; 87449; 89055; 92523; 92610; 93970; 97110; 97116; 97163; 97167; 97530; 97535; A4315; A5200